=== PATIENT | male | born 1945 ===

== ENCOUNTER 2016-06-18 22:53 | Inpatient (IN) | payer MEDICARE, OTHER ==
[2016-06-18 22:57] VITALS: BMI 29.2
[2016-06-18] MEDS ORDERED: Albuterol-Ipratrop 3 mg / 0.5 (3 ml) UD IH STA (23:04)
--- NOTE | 2016-06-18 23:05 | ED PDOC ---
Arrival/HPI - General Chief Complaint: Shortness Of Breath Time Seen by Provider: 06/18/16 22:55 Historian: Patient - History of Present Illness Narrative History of Present Illness (Text): 06/18/16 23:03 Jimbo Krause is a 70 year old male, whose past medical history includes hypertension, diabetes, asthma, hyperlipidemia, and hypothyroidism, who presents to the ED complaining of shortness of breath for the past couple of days. Patient also reports associated cough. Patient notes he has been unable to take his medication because he recently ran out of medication. Patient denies any fever, chills, chest pain, nausea, vomiting, diarrhea, urinary symptoms, back pain, neck pain, headache, dizziness, or any other complaints. Time/Duration: Other (2 days) Symptom Onset: Gradual Symptom Course: Unchanged Activities at Onset: Rest, Light Context: Home Past Medical History - Provider Review Nursing Documentation Reviewed: Yes - Infectious Disease Hx of Infectious Diseases: None - Tetanus Immunization Tetanus Immunization: Unknown - Cardiac Hx Cardiac Disorders: Yes Hx Heart Murmur: Yes Hx Hypertension: Yes - Pulmonary Hx Asthma: Yes - Neurological Hx Neurological Disorder: No - HEENT Hx HEENT Disorder: Yes (wears glasses) - Renal Hx Renal Disorder: No - Endocrine/Metabolic Hx Diabetes Mellitus Type 2: Yes Hx Hypothyroidism: Yes - Hematological/Oncological Hx Blood Disorders: No - Integumentary Hx Dermatological Disorder: No - Musculoskeletal/Rheumatological Hx Musculoskeletal Disorders: No Hx Falls: No - Gastrointestinal Hx Gastrointestinal Disorders: No - Genitourinary/Gynecological Hx Genitourinary Disorders: No - Psychiatric Hx Anxiety: Yes Hx Depression: Yes Hx Substance Use: No - Surgical History Hx Musculoskeletal Surgery: Yes (Right knee and left shoulder) Other/Comment: Leg - Anesthesia Hx Anesthesia: Yes Hx Anesthesia Reactions: No Hx Malignant Hyperthermia: No Family/Social History - Physician Review Nursing Documentation Reviewed: Yes Family/Social History: No Known Family HX Smoking Status: Former Smoker Hx Alcohol Use: No Hx Substance Use: No Allergies/Home Meds Allergies/Adverse Reactions: Allergies No Known Allergies Allergy (Verified 03/26/16 10:13) Home Medications: Home Meds Medication Instructions Recorded Confirmed Amlodipine Besylate [Norvasc] 10 mg PO DAILY 08/21/15 06/19/16 Aspirin [Ecotrin] 81 mg PO DAILY 08/21/15 06/19/16 Atorvastatin [Lipitor] 10 mg PO DAILY 08/21/15 06/19/16 Escitalopram [Lexapro] 10 mg pe PO DAILY 08/21/15 06/19/16 Levothyroxine Sodium [Levoxyl] 25 mcg PO DAILY 08/21/15 06/19/16 Lisinopril [Zestril] 10 mg PO DAILY 08/21/15 06/19/16 MetFORMIN [glucoPHAGE] 1,000 mg PO BID 08/21/15 06/19/16 Metoprolol Succinate [Toprol XL] 50 mg PO DAILY 08/21/15 06/19/16 GlipiZIDE SR [Glucotrol XL] 10 mg PO BID 03/26/16 06/19/16 Montelukast Sodium [Singulair] 10 mg PO DAILY 03/26/16 06/19/16 ALPRAZolam [Xanax] 0.25 mg PO HS 06/19/16 06/19/16 Review of Systems - Physician Review All systems were reviewed & negative as marked: Yes - Review of Systems Constitutional: Normal. absent: Fevers Eyes: Normal ENT: Normal Respiratory: SOB, Cough Cardiovascular: Normal. absent: Chest Pain Gastrointestinal: Normal. absent: Abdominal Pain, Diarrhea, Nausea, Vomiting Genitourinary Male: Normal. absent: Dysuria, Frequency, Hematuria, Urinary Output Changes Musculoskeletal: Normal. absent: Back Pain, Neck Pain Skin: Normal. absent: Rash Neurological: Normal. absent: Headache, Dizziness Endocrine: Normal Hemo/Lymphatic: Normal Psychiatric: Normal Physical Exam Vital Signs Reviewed: Yes Vital Signs Temp Pulse Resp BP Pulse Ox 06/19/16 03:18 104 H 20 129/75 100 06/19/16 01:05 90 18 120/55 L 98 06/18/16 23:37 98.2 F 06/18/16 23:15 21 100 06/18/16 22:58 86 18 141/86 100 Temperature: Afebrile Blood Pressure: Normal Pulse: Regular Respiratory Rate: Normal Appearance: Positive for: Well-Appearing, Non-Toxic, Comfortable Pain Distress: None Mental Status: Positive for: Alert and Oriented X 3 - Systems Exam Head: Present: Atraumatic, Normocephalic Pupils: Present: PERRL Extroacular Muscles: Present: EOMI Conjunctiva: Present: Normal Mouth: Present: Moist Mucous Membranes Neck: Present: Normal Range of Motion Respiratory/Chest: Present: Wheezes (Wheezing bilaterally). No: Respiratory Distress, Accessory Muscle Use Cardiovascular: Present: Regular Rate and Rhythm, Normal S1, S2. No: Murmurs Abdomen: Present: Normal Bowel Sounds. No: Tenderness, Distention, Peritoneal Signs Upper Extremity: Present: Normal Inspection. No: Cyanosis, Edema Lower Extremity: Present: Normal Inspection. No: Edema Neurological: Present: GCS=15, CN II-XII Intact, Speech Normal Skin: Present: Warm, Dry, Normal Color. No: Rashes Psychiatric: Present: Alert, Oriented x 3, Normal Insight, Normal Concentration Medical Decision Making ED Course and Treatment: 06/18/16 23:03 Impression: 70 year old male complaining of shortness of breath and cough. Differential Diagnosis include but are not limited to: asthma vs. COPD exacerbation vs. pneumonia vs. ACS vs. CHF Plan: -- EKG -- Chest X-ray -- Labs, cardiac enzymes, BNP -- Duoneb -- Solu-medrol -- Reassess and disposition Prior Visits: Notes and results from previous visits were reviewed. On 03/26/2016, pt was seen in the ED for sharp LLQ pain. Pt was d/c home. Progress Notes: Reviewed EKG, NSR at [address]-segment elevations or depressions, no T- wave inversions, normal intervals. 06/19/16 01:53 Reviewed labs, WBC:13.2. Blood cultures, Rocephin, and Zithromax ordered. Reviewed radiology, Chest X-ray shows no active disease. 06/19/16 02:[address] Sarmiento, covering for Dr. Hall, who requests pt go to hospitalist service. microarray operations vice president paged. 06/19/16 02:41 Case discussed with medical microbiologist regional facilities specialist, who is aware and agrees with plan. House doctor paged. 06/19/16 02:[address] Burr, who is aware and agrees with plan. Pt will be admitted to Telemetry for COPD exacerbation under the hospitalist's service. Pt is no acute distress. Discussed results and hospital admission plan with pt, who is aware and verbalizes understanding. - Lab Interpretations Lab Results: 06/18/16 23:15 06/18/16 23:15 Lab Results 06/18/16 23:15: WBC 13.2 H D, RBC 4.64, Hgb 14.7, Hct 41.4 L, MCV 89.2, MCH 31.7 , MCHC 35.5, RDW 12.9, Plt Count 177, MPV 11.9 H, Sodium 133, Potassium 3.8, Chloride 93 L, Carbon Dioxide 29, Anion Gap 15, BUN 16, Creatinine 0.9, Est GFR ( Amer) > 60, Est GFR (Non-Af Amer) > 60, Random Glucose 221 H, Calcium 9.0, Total Bilirubin 1.2, AST 23, ALT 18, Alkaline Phosphatase 67, Lactate Dehydrogenase 408, Total Creatine Kinase 204, Troponin I < 0.01, NT-Pro-B Natriuret Pep 141, Total Protein 7.1, Albumin 4.0, Globulin 3.0, Albumin/ Globulin Ratio 1.3 I have reviewed the lab results: Yes - RAD Interpretation Narrative RAD Interpretations (Text): Chest X-ray shows no active disease. Radiology Orders: 06/18/16 23:04 CHEST PORTABLE [RAD] Stat Accounts Receivable Bookkeeper: ED Physician - EKG Interpretation Interpreted by ED Physician: Yes Type: 12 lead EKG - Medication Orders Current Medication Orders: Albuterol/Ipratropium (Duoneb 3 Mg/0.5 Mg (3 Ml) Ud) 3 ml IH Q2H PRN PRN Reason: Shortness of Breath Albuterol/Ipratropium (Duoneb 3 Mg/0.5 Mg (3 Ml) Ud) 3 ml IH [id number] KRISTEL Amlodipine Besylate (Norvasc) 10 mg PO DAILY KRISTEL Aspirin (Ecotrin) 81 mg PO DAILY KRISTEL Atorvastatin Calcium (Lipitor) 10 mg PO DAILY KRISTEL Escitalopram Oxalate (Lexapro) 10 mg PO DAILY KRISTEL Azithromycin (Zithromax 500mg In Ns) 250 mls @ 167 mls/hr IVPB DAILY KRISTEL PRN Reason: Protocol Ceftriaxone Sodium (Rocephin 1 Gram Ivpb) 100 mls @ 100 mls/hr IVPB DAILY KRISTEL PRN Reason: Protocol Insulin Detemir (Levemir) 8 unit SC BID KRSITEL Insulin Human Lispro (Humalog Med) 0 units SC ACHS KRISTEL PRN Reason: Protocol Levothyroxine Sodium (Synthroid) 25 mcg PO ACB KRISTEL Lisinopril (Zestril) 10 mg PO DAILY KRISTEL Methylprednisolone (Solu-Medrol) 40 mg IVP Q12 KRISTEL Metoprolol Succinate (Toprol Xl) 50 mg PO DAILY KRISTEL Montelukast Sodium (Singulair) 10 mg PO DAILY KRISTEL Discontinued Medications Albuterol/Ipratropium (Duoneb 3 Mg/0.5 Mg (3 Ml) Ud) 3 ml IH ONCE STA Stop: 06/18/16 23:05 Last Admin: 06/18/16 23:29 Dose: 3 ML Albuterol/Ipratropium (Duoneb 3 Mg/0.5 Mg (3 Ml) Ud) 3 ml IH ONCE STA Stop: 06/19/16 02:36 Last Admin: 06/19/16 02:49 Dose: 3 ML Ceftriaxone Sodium (Rocephin 1 Gram Ivpb) 100 mls @ 200 mls/hr IV ONCE STA PRN Reason: Protocol Stop: 06/19/16 03:07 Last Admin: 06/19/16 03:26 Dose: 200 MLS/HR eMAR Start Stop Document 06/19/16 03:26 MR (Rec: 06/19/16 03:27 [id number] Intravenous Solution Start Date 06/19/16 Start Time 03:26 End Date 06/19/16 End time 03:56 Total Infusion Time 30 Azithromycin (Zithromax 500mg In Ns) 250 mls @ 166.667 mls/hr IV STAT STA PRN Reason: Protocol Stop: 06/19/16 04:07 Last Admin: 06/19/16 04:49 Dose: 166.667 MLS/HR eMAR Start Stop Document 06/19/16 04:49 MS (Rec: 06/19/16 04:49 MS [id number]) Intravenous Solution Start Date 06/19/16 Start Time 04:49 End Date 06/19/16 End time 06:19 Total Infusion Time 90 Methylprednisolone (Solu-Medrol) 125 mg IVP ONCE ONE Stop: 06/18/16 23:11 Last Admin: 06/18/16 23:28 Dose: 125 MG IVP Administration Document 06/18/16 23:28 MR (Rec: 06/18/16 23:28 MR [id number]) Charges for Administration # of IVP Administrations 1 - Scribe Statement The provider has reviewed the documentation as recorded by the Scribe Bonny Catrachita Provider Attestation: All medical record entries made by the Uma were at my direction and personally dictated by me. I have reviewed the chart and agree that the record accurately reflects my personal performance of the history, physical exam, medical decision making, and the department course for this patient. I have also personally directed, reviewed, and agree with the discharge instructions and disposition. Disposition/Present on Arrival - Present on Arrival Any Indicators Present on Arrival: No History of DVT/PE: No History of Uncontrolled Diabetes: No Urinary Catheter: No History of Decub. Ulcer: No History Surgical Site Infection Following: None - Disposition Have Diagnosis and Disposition been Completed?: Yes Diagnosis: Obstructive chronic bronchitis with exacerbation Disposition: HOSPITALIZED Disposition Time: 02:40 Patient Plan: Admission Condition: STABLE
[2016-06-18 23:29] LABS: HEMATOCRIT 41.4 % (42.0-52.0); MEAN CELL VOLUME 89.2 fL (80.0-105.0); MEAN CORPUSCULAR HEMOGLOBIN 31.7 pg (25.0-35.0); MEAN CORPUSCULAR HGB CONC 35.5 g/dl (31.0-37.0); MEAN PLATELET VOLUME 11.9 fl (7.0-11.0); RED CELL DISTRIBUTION WIDTH 12.9 % (11.5-14.5); WHITE BLOOD COUNT 13.2 10^3/ul (4.5-11.0)
[2016-06-18 23:44] LABS: ALB/GLOB RATIO 1.3 (1.1-1.8); ALKALINE PHOSPHATASE 67 U/L (38-133); ALT/SGPT 18 U/L (7-56); AST/SGOT 23 U/L (15-59); BILIRUBIN,TOTAL 1.2 mg/dL (0.2-1.3); BLOOD UREA NITROGEN 16 mg/dL (7-21); CARBON DIOXIDE 29 mmol/L (21-33); CHLORIDE 93 mmol/L (98-107); GFR AFRICAN-AMERICAN > 60; GLUCOSE,RANDOM 221 mg/dL (70-110); POTASSIUM 3.8 mmol/L (3.6-5.0); SODIUM 133 mmol/L (132-148); TOTAL PROTEIN 7.1 g/dL (5.8-8.3)
[2016-06-19 00:24] LABS: TROPONIN I < 0.01 ng/mL
[2016-06-19] MEDS ORDERED: Albuterol-Ipratrop 3 mg / 0.5 (3 ml) UD IH STA (02:35)
[2016-06-19] MEDS ORDERED: cefTRIAXone 1 gm 100 ML IV STA (02:38)
[2016-06-19] MEDS ORDERED: Azithromycin 500MG/NS 250ml 250 ML IV STA (02:38)
--- NOTE | 2016-06-19 03:37 | CP.PCM.HP ---
<Lars Liriano - Last Filed: 06/19/16 03:23> History of Present Illness - History of Present Illness History of Present Illness: Lars Liriano D.O. PGY-1, Internal Medicine Resident, Night Float Admission Note CC: Shortness of breath and coughing for 4 days 70 year old male with a PMH of Asthma, COPD, HTN, hypothyroidism, anxiety, and DM2, who presented to [facility] on [place]/16 with complaints of SOB and coughing since 06/15. Patient states that he was in [place] visiting his nephew with another one of his nephews when he started noticing that he was getting short of breath more frequently and coughing "a lot." Patient knows his asthma, which he's had since he was very young, and COPD very well and states that he started taking prednisone 40mg po QD starting the night of 06/15. Patient states that his symptoms did not get that much better and he continued to have "coughing fits." Patient came back 06/18/16 with his nephew driving and when they arrived he realized that he was so bad that he needed to come in. Patient states that this is similar to previous episodes he's had in the past. Denies every having to be intubated before. PMH: as above PSH: right shoulder and left knee surgeries FSH: DM and HTN SH: smoked 2ppd for ~ 27 years, quit about 20+ years ago, denies drinking or illicit drug use Meds: reviewed Allergies: denies Present on Admission - Present on Admission Any Indicators Present on Admission: No Review of Systems - Constitutional Constitutional: absent: Anorexia, Chills - EENT Eyes: absent: Blind Spots, Blurred Vision, Change in Vision Ears: absent: Decreased Hearing, Ear Discharge, Ear Pain Nose/Mouth/Throat: absent: Epistaxis, Nasal Congestion, Nose Pain - Cardiovascular Cardiovascular: Palpitations. absent: Chest Pain, Diaphoresis, Syncope - Respiratory Respiratory: Cough, Dyspnea, Wheezing. absent: Hemoptysis - Gastrointestinal Gastrointestinal: absent: Abdominal Pain, Nausea, Vomiting - Genitourinary Genitourinary: Change in Urinary Stream, Difficulty Urinating. absent: Dysuria - Musculoskeletal Musculoskeletal: absent: Abnormal Gait, Arthralgias - Neurological Neurological: absent: Abnormal Gait, Abnormal Hearing, Dizziness, Weakness Past Patient History - Infectious Disease Hx of Infectious Diseases: None - Tetanus Immunizations Tetanus Immunization: Unknown - Past Social History Smoking Status: Former Smoker - CARDIAC Hx Cardiac Disorders: Yes Hx Heart Murmur: Yes Hx Hypertension: Yes - PULMONARY Hx Asthma: Yes - NEUROLOGICAL Hx Neurological Disorder: No - HEENT Hx HEENT Problems: Yes (wears glasses) - RENAL Hx Chronic Kidney Disease: No - ENDOCRINE/METABOLIC Hx Diabetes Mellitus Type 2: Yes Hx Hypothyroidism: Yes - HEMATOLOGICAL/ONCOLOGICAL Hx Blood Disorders: No - INTEGUMENTARY Hx Dermatological Problems: No - MUSCULOSKELETAL/RHEUMATOLOGICAL Hx Musculoskeletal Disorders: No Hx Falls: No - GASTROINTESTINAL Hx Gastrointestinal Disorders: No - GENITOURINARY/GYNECOLOGICAL Hx Genitourinary Disorders: No - PSYCHIATRIC Hx Anxiety: Yes Hx Depression: Yes Hx Substance Use: No - SURGICAL HISTORY Hx Musculoskeletal Surgery: Yes (Right knee and left shoulder) Other/Comment: Leg - ANESTHESIA Hx Anesthesia: Yes Hx Anesthesia Reactions: No Hx Malignant Hyperthermia: No Meds Allergies/Adverse Reactions: Allergies Allergy/AdvReac Type Severity Reaction Status Date / Time No Known Allergies Allergy Verified 03/26/16 10:13 Physical Exam - Constitutional Additional comments: well developed, well nourished, pleasant elderly Iranian male - Head Exam Head Exam: ATRAUMATIC, NORMOCEPHALIC - Eye Exam Eye Exam: EOMI, PERRL. absent: Conjunctival injection, Scleral icterus - ENT Exam ENT Exam: Mucous Membranes Moist, Normal Oropharynx - Neck Exam Neck exam: Negative for: Lymphadenopathy, Tenderness - Respiratory Exam Respiratory Exam: Rhonchi (diffusely), Wheezes (diffusely). absent: Rales - Cardiovascular Exam Cardiovascular Exam: RRR, +S1, +S2. absent: Gallop, Rubs, Systolic Murmur - GI/Abdominal Exam GI & Abdominal Exam: Normal Bowel Sounds, Soft. absent: Distended, Tenderness - Extremities Exam Extremities exam: Positive for: normal capillary refill, pedal pulses present. Negative for: calf tenderness, pedal edema, tenderness - Back Exam Back exam: absent: muscle spasm, paraspinal tenderness, vertebral tenderness - Neurological Exam Neurological exam: Alert, CN II-XII Intact, Oriented x3 - Skin Skin Exam: Intact, Warm Results - Vital Signs Recent Vital Signs: Last Vital Signs Temp 98.2 F 06/18/16 23:37 Pulse 104 H 06/19/16 03:18 Resp 20 06/19/16 03:18 BP 129/75 06/19/16 03:18 Pulse Ox 100 06/19/16 03:18 - Labs Result Diagrams: 06/18/16 23:15 06/18/16 23:15 Assessment & Plan - Assessment and Plan (Free Text) Assessment: 70 year old male with a PMH of Asthma, COPD, HTN, hypothyroidism, anxiety, and DM2, who presented to [facility] on 06/19/16 with complaints of SOB and coughing since 06/15. Plan: 1. Shortness of breath and cough Admitted to telemetry Likely COPD exacerbation vs pneumonia vs bronchitis, does have both wheezing and rhonchi, vs cardiac etiology Leukocytosis likely 2/2 steroid use before admission vs infectious process Procalcitonin ordered Will trend troponins CXR no official read, reviewed, unable to rule out pneumonia, particularly BL lower lobes, increased pulmonary markings Started duonebs q4h blanca and q2h prn Started solumedrol 40mg po q12h Started ceftriaxone and azithromycin Repeat CBC and CMP tomorrow AM Will continue home montelukast 2. DM2 Will hold PO regimen and place on insulin while in patient Started levemir 8u SC BID Started humalog MED insulin scale Fingersticks ACHS Will get an A1C 3. HTN Continue home regimen and monitor closely in telemetry 4. Anxiety Continue home escitalopram 5. Hematuria and hesitancy Patient states at times has had hematuria and some hesitancy Will order UA and follow up, minimally symptomatic at this time 6. Hypothyrodism Continue home levothyroxine Patient was seen and examined and will be discussed in detial with attending physician. - Date & Time Date: 06/19/16 Time: 03:20 <Charleen Burr - Last Filed: 06/19/16 06:09> Results - Vital Signs Recent Vital Signs: Last Vital Signs Temp 98.2 F 06/18/16 23:37 Pulse 104 H 06/19/16 03:18 Resp 20 06/19/16 03:18 BP 129/75 06/19/16 03:18 Pulse Ox 100 06/19/16 03:18 - Labs Result Diagrams: 06/18/16 23:15 06/18/16 23:15 Attending/Attestation - Attestation I have personally seen and examined this patient.: Yes I have fully participated in the care of the patient.: Yes I have reviewed all pertinent clinical information: Yes Notes (Text): 06/19/16 04:29 Patient was seen when he was in the ER in bed # 8. Agree with history , physical examination, assessment and plan. Following should be included:FH:Father of throat cancer.2 sisters had breast cancer. 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 but .Has 7 children.Lives in [place] in an apartment. PMD:?[place]. ROS:Has eyeglasses for reading, has decreased hearing in both ears, used to have sinus problems, has history of asthma, GERD,BPH,anxiety, depression. SURGICAL HISTORY:Right knee arthroscopy, Left shoulder arthroscopic surgery, Left inguinal herniorrahphy, endo/ colonoscopy 2 years ago at [facility] that were negative, cardiac catheterization one year ago that was negative.
[2016-06-19] MEDS ORDERED: Albuterol-Ipratrop 3 mg / 0.5 (3 ml) UD IH PRN (03:38)
[2016-06-19 06:30] LABS: URINE BILIRUBIN NEGATIVE (NEGATIVE); URINE BLOOD NEGATIVE (NEGATIVE); URINE GLUCOSE (UA) >=1000 mg/dL (NEGATIVE); URINE KETONE TRACE mg/dL (NEGATIVE); URINE LEUKOCYTE ESTERASE NEGATIVE Leu/uL (NEGATIVE); URINE PROTEIN NEGATIVE mg/dL (<30 mg/dL)
[2016-06-19 06:36] LABS: URINE APPEARANCE CLEAR (CLEAR); URINE COLOR YELLOW (YELLOW)
[2016-06-19] MEDS: Albuterol-Ipratrop 3 mg / 0.5 (3 ml) UD IH SCH ×4 (07:40→19:55)
--- NOTE | 2016-06-19 08:31 | RAD ---
HISTORY: sob COMPARISON: 08/21/2015 FINDINGS: LUNGS: No active pulmonary disease. PLEURA: No significant pleural effusion identified, no pneumothorax apparent. CARDIOVASCULAR: Normal. OSSEOUS STRUCTURES: No significant abnormalities. VISUALIZED UPPER ABDOMEN: Normal. OTHER FINDINGS: None. IMPRESSION: No active disease.
[2016-06-19] MEDS: Insulin Lispro (humaLOG) MEDIUM Coverage SC SCH ×4 (08:49→21:59)
[2016-06-19] MEDS: MethylPREDNISolone 40 mg Vial IVP SCH ×2 (09:31→21:19)
[2016-06-19] MEDS: Insulin Detemir 100 units/ml Vial (Levemir) SC SCH ×2 (09:32→17:45)
[2016-06-19] MEDS: Levothyroxine 25 MCG TAB PO SCH (09:32)
[2016-06-19] MEDS: Metoprolol Succinate 50 mg XL Tab PO SCH (10:00)
[2016-06-19] MEDS ORDERED: GlipiZIDE 10 mg SR Tab PO SCH (10:00)
[2016-06-19] MEDS ORDERED: guaiFENesin 100 mg/5 ml Syrup UD PO PRN (11:20)
[2016-06-19] MEDS: cefTRIAXone 1 gm 100 ML IVPB SCH (14:12)
--- NOTE | 2016-06-19 15:40 | CARD ---
APPROVED REPORT EKG Measurement Heart [id number] <Conclusion> Normal sinus rhythm Normal ECG
[2016-06-20] MEDS: Albuterol-Ipratrop 3 mg / 0.5 (3 ml) UD IH SCH ×6 (00:28→20:19)
[2016-06-20 06:32] LABS: HEMATOCRIT 40.1 % (42.0-52.0); MEAN CELL VOLUME 89.3 fL (80.0-105.0); MEAN CORPUSCULAR HEMOGLOBIN 31.2 pg (25.0-35.0); MEAN CORPUSCULAR HGB CONC 34.9 g/dl (31.0-37.0); MEAN PLATELET VOLUME 12.4 fl (7.0-11.0); PLATELET COUNT 177 10^3/uL (120.0-450.0); RED CELL DISTRIBUTION WIDTH 12.7 % (11.5-14.5); WHITE BLOOD COUNT 16.1 10^3/ul (4.5-11.0)
[2016-06-20 06:35] LABS: ADD MANUAL DIFF? YES
[2016-06-20 06:48] LABS: ALB/GLOB RATIO 1.3 (1.1-1.8); ALKALINE PHOSPHATASE 68 U/L (38-133); ALT/SGPT 20 U/L (7-56); AST/SGOT 25 U/L (15-59); BILIRUBIN,TOTAL 0.8 mg/dL (0.2-1.3); BLOOD UREA NITROGEN 20 mg/dL (7-21); CALCIUM 8.8 mg/dL (8.4-10.5); CARBON DIOXIDE 27 mmol/L (21-33); CHLORIDE 96 mmol/L (98-107); GFR AFRICAN-AMERICAN > 60; POTASSIUM 4.5 mmol/L (3.6-5.0); SODIUM 132 mmol/L (132-148); TOTAL PROTEIN 6.7 g/dL (5.8-8.3)
[2016-06-20 07:11] LABS: GLUCOSE,RANDOM 305 mg/dL (70-110)
[2016-06-20] MEDS: Levothyroxine 25 MCG TAB PO SCH (08:08)
[2016-06-20] MEDS: Insulin Lispro (humaLOG) MEDIUM Coverage SC SCH ×4 (08:08→21:56)
[2016-06-20 09:11] LABS: BAND 5 % (0-2); NEUTROPHIL 88 % (50.0-70.0); PLATELET ESTIMATE NORMAL (NORMAL)
[2016-06-20 09:12] LABS: ANISOCYTOSIS SLIGHT; OVALOCYTES SLIGHT
[2016-06-20] MEDS: Insulin Detemir 100 units/ml Vial (Levemir) SC SCH ×2 (10:08→18:50)
[2016-06-20] MEDS: cefTRIAXone 1 gm 100 ML IVPB SCH (10:09)
[2016-06-20] MEDS: Metoprolol Succinate 50 mg XL Tab PO SCH (10:11)
[2016-06-20] MEDS: MethylPREDNISolone 40 mg Vial IVP SCH ×2 (10:11→21:23)
--- NOTE | 2016-06-20 11:37 | CP.PCM.PN ---
<Catracho Madsen - Last Filed: 06/20/16 17:02> Subjective - Date & Time of Evaluation Date of Evaluation: 06/20/16 Time of Evaluation: 07:00 - Subjective Subjective: Patient seen and examined at bedside. No acute events overnight. Patient reports wheezing is improving but still has it. Patient agreed to start insulin after discharged from hospital. Denies having headache, weakness, fever, chills , chest pain, abdominal pain, nausea, vomiting, diarrhea, or constipation. Objective - Vital Signs/Intake and Output Vital Signs (last 24 hours): Temp Pulse Resp BP Pulse Ox 97.8 F 76 20 114/78 96 06/20/16 05:40 06/20/16 05:40 06/20/16 05:40 06/20/16 05:40 06/20/16 05:40 Intake and Output: 06/20/16 06/20/16 06:59 18:59 Intake Total 780 Output Total 450 Balance 330 - Medications Medications: Current Medications Albuterol/Ipratropium (Duoneb 3 Mg/0.5 Mg (3 Ml) Ud) 3 ml IH Q2H PRN PRN Reason: Shortness of Breath Albuterol/Ipratropium (Duoneb 3 Mg/0.5 Mg (3 Ml) Ud) 3 ml IH [id number] [facility] Last Admin: 06/20/16 07:34 Dose: 3 ml Amlodipine Besylate (Norvasc) 10 mg PO DAILY [facility] Last Admin: 06/20/16 10:09 Dose: 10 mg Aspirin (Ecotrin) 81 mg PO DAILY [facility] Last Admin: 06/20/16 10:08 Dose: 81 mg Atorvastatin Calcium (Lipitor) 10 mg PO DAILY [facility] Last Admin: 06/20/16 10:09 Dose: 10 mg Escitalopram Oxalate (Lexapro) 10 mg PO DAILY [facility] Last Admin: 06/20/16 10:08 Dose: 10 mg Guaifenesin (Robitussin) 100 mg PO Q4H PRN PRN Reason: Cough Last Admin: 06/19/16 21:19 Dose: 100 mg Azithromycin (Zithromax 500mg In Ns) 250 mls @ 167 mls/hr IVPB DAILY [facility] PRN Reason: Protocol Ceftriaxone Sodium (Rocephin 1 Gram Ivpb) 100 mls @ 100 mls/hr IVPB DAILY [facility] PRN Reason: Protocol Last Admin: 06/20/16 10:09 Dose: 100 mls/hr Insulin Detemir (Levemir) 10 unit SC BID [facility] Insulin Human Lispro (Humalog Med) 0 units SC ACHS [facility] PRN Reason: Protocol Last Admin: 06/20/16 08:08 Dose: 5 units Levothyroxine Sodium (Synthroid) 25 mcg PO ACB [facility] Last Admin: 06/20/16 08:08 Dose: 25 mcg Lisinopril (Zestril) 10 mg PO DAILY [facility] Last Admin: 06/20/16 10:12 Dose: 10 mg Methylprednisolone (Solu-Medrol) 30 mg IVP Q12 [facility] Metoprolol Succinate (Toprol Xl) 50 mg PO DAILY [facility] Last Admin: 06/20/16 10:11 Dose: 50 mg Montelukast Sodium (Singulair) 10 mg PO DAILY [facility] Last Admin: 06/20/16 10:11 Dose: 10 mg - Labs Labs: 06/20/16 05:30 06/20/16 05:30 - Constitutional Appears: Non-toxic, No Acute Distress - Head Exam Head Exam: ATRAUMATIC, NORMOCEPHALIC - Eye Exam Eye Exam: EOMI, Normal appearance - ENT Exam ENT Exam: Mucous Membranes Moist - Neck Exam Neck Exam: Normal Inspection - Respiratory Exam Respiratory Exam: Clear to Ausculation Bilateral, Wheezes, NORMAL BREATHING PATTERN. absent: Respiratory Distress - Cardiovascular Exam Cardiovascular Exam: REGULAR RHYTHM, RRR, +S1, +S2. absent: Murmur - GI/Abdominal Exam GI & Abdominal Exam: Soft, Normal Bowel Sounds. absent: Tenderness - Extremities Exam Extremities Exam: Full ROM, Normal Capillary Refill, Normal Inspection. absent : Joint Swelling, Pedal Edema - Back Exam Back Exam: NORMAL INSPECTION - Neurological Exam Neurological Exam: Alert, Awake, Oriented x3 - Psychiatric Exam Psychiatric exam: Normal Affect, Normal Mood - Skin Skin Exam: Dry, Warm Assessment and Plan - Assessment and Plan (Free Text) Assessment: 70 year old male with past medical history of Asthma, COPD, HTN, hypothyroidism , anxiety, and DM2, was admitted for COPD exacerbation COPD Exacerbation Discontinued telemetry Leukocytosis at 161 likely due to IV solumedrol Procalcitonin <0.05 Troponins negative x 3 CXR report showed no active disease Continue duonebs q4h blanca and q2h prn Taper solumedrol to 30mg po q12h Continue ceftriaxone and azithromycin Continue home montelukast DM2 Patient agreed to insulin therapy upon discharge Increased levemir to 10 units SC BID Continue humalog MED insulin scale Fingersticks ACHS A1C 9.4 HTN Continue home Norvasc 10mg, Toprol XL 50mg po, lisinopril 10mg Anxiety Continue home escitalopram Hematuria and hesitancy Patient reports normal urine color this AM UA showed trace ketone, urobilinogen Hypothyrodism Continue home levothyroxine <Jelani Coronado - Last Filed: 06/20/16 17:41> Objective - Vital Signs/Intake and Output Vital Signs (last 24 hours): Temp Pulse Resp BP Pulse Ox 97 F L 77 18 125/79 96 06/20/16 12:00 06/20/16 12:00 06/20/16 12:00 06/20/16 12:00 06/20/16 05:40 Intake and Output: 06/20/16 06/20/16 06:59 18:59 Intake Total 780 Output Total 450 Balance 330 - Medications Medications: Current Medications Albuterol/Ipratropium (Duoneb 3 Mg/0.5 Mg (3 Ml) Ud) 3 ml IH Q2H PRN PRN Reason: Shortness of Breath Albuterol/Ipratropium (Duoneb 3 Mg/0.5 Mg (3 Ml) Ud) 3 ml IH [id number] [facility] Last Admin: 06/20/16 16:19 Dose: Not Given Amlodipine Besylate (Norvasc) 10 mg PO DAILY [facility] Last Admin: 06/20/16 10:09 Dose: 10 mg Aspirin (Ecotrin) 81 mg PO DAILY [facility] Last Admin: 06/20/16 10:08 Dose: 81 mg Atorvastatin Calcium (Lipitor) 10 mg PO DAILY [facility] Last Admin: 06/20/16 10:09 Dose: 10 mg Escitalopram Oxalate (Lexapro) 10 mg PO DAILY [facility] Last Admin: 06/20/16 10:08 Dose: 10 mg Guaifenesin (Robitussin) 100 mg PO Q4H PRN PRN Reason: Cough Last Admin: 06/19/16 21:19 Dose: 100 mg Azithromycin (Zithromax 500mg In Ns) 250 mls @ 167 mls/hr IVPB DAILY [facility] PRN Reason: Protocol Last Admin: 06/20/16 12:15 Dose: 167 mls/hr Ceftriaxone Sodium (Rocephin 1 Gram Ivpb) 100 mls @ 100 mls/hr IVPB DAILY [facility] PRN Reason: Protocol Last Admin: 06/20/16 10:09 Dose: 100 mls/hr Insulin Detemir (Levemir) 10 unit SC BID [facility] Insulin Human Lispro (Humalog Med) 0 units SC ACHS [facility] PRN Reason: Protocol Last Admin: 06/20/16 12:19 Dose: 1 units Levothyroxine Sodium (Synthroid) 25 mcg PO ACB [facility] Last Admin: 06/20/16 08:08 Dose: 25 mcg Lisinopril (Zestril) 10 mg PO DAILY [facility] Last Admin: 06/20/16 10:12 Dose: 10 mg Methylprednisolone (Solu-Medrol) 30 mg IVP Q12 [facility] Metoprolol Succinate (Toprol Xl) 50 mg PO DAILY [facility] Last Admin: 06/20/16 10:11 Dose: 50 mg Montelukast Sodium (Singulair) 10 mg PO DAILY [facility] Last Admin: 06/20/16 10:11 Dose: 10 mg - Labs Labs: 06/20/16 05:30 06/20/16 05:30 Attending/Attestation - Attestation I have personally seen and examined this patient.: Yes I have fully participated in the care of the patient.: Yes I have reviewed all pertinent clinical information, including history, physical exam and plan: Yes Notes (Text): 06/20/16 17:37 70 year old male with past medical history of COPD, hypertension, hypothyroidism and diabetes who presented with COPD exacerbation. He is on duonebs, solumedrol and antibiotics. Wheezing is improving and his steroids will be tapered today. Leukocytosis today likely secondary to steroids. He was started on levemir for uncontrolled diabetes. A1c is 9.4. Diabetic education was ordered and well as nurse communication for self insulin injection teaching. Continue with home medications for hypothyroidism and hypertension. Will d/c telemetry today and transfer to med/surg floor. If symptoms continue to improve possible d/c planning in 24-48 hrs. Jelani Coronado MD Hospitalist.
[2016-06-20] MEDS: Azithromycin 500MG/NS 250ml 250 ML IVPB SCH (12:15)
[2016-06-20 18:23] VITALS: O2SAT 95
[2016-06-21] MEDS: Albuterol-Ipratrop 3 mg / 0.5 (3 ml) UD IH SCH ×2 (00:55→07:11)
[2016-06-21 06:44] LABS: ADD MANUAL DIFF? NO
[2016-06-21 07:03] LABS: BLOOD UREA NITROGEN 23 mg/dL (7-21); CALCIUM 8.5 mg/dL (8.4-10.5); CARBON DIOXIDE 25 mmol/L (21-33); CHLORIDE 96 mmol/L (98-107); GFR AFRICAN-AMERICAN > 60; GLUCOSE,RANDOM 285 mg/dL (70-110); POTASSIUM 4.9 mmol/L (3.6-5.0); SODIUM 130 mmol/L (132-148)
[2016-06-21 07:12] LABS: GRAN # 13.84 (1.4-6.5); GRAN % 89.7 % (50.0-68.0); HEMATOCRIT 39.2 % (42.0-52.0); LYMPH % 6.5 % (22.0-35.0); MEAN CELL VOLUME 88.5 fL (80.0-105.0); MEAN CORPUSCULAR HEMOGLOBIN 31.4 pg (25.0-35.0); MEAN CORPUSCULAR HGB CONC 35.5 g/dl (31.0-37.0); MEAN PLATELET VOLUME 11.6 fl (7.0-11.0); MONO # 0.6 (0.1-0.6); MONO % 3.8 % (1.0-6.0); PLATELET COUNT 224 10^3/uL (120.0-450.0); RED CELL DISTRIBUTION WIDTH 12.8 % (11.5-14.5); WHITE BLOOD COUNT 15.4 10^3/ul (4.5-11.0)
[2016-06-21 07:36] VITALS: TEMP 97.8
[2016-06-21] MEDS: Insulin Lispro (humaLOG) MEDIUM Coverage SC SCH ×2 (08:25→11:53)
[2016-06-21] MEDS: Levothyroxine 25 MCG TAB PO SCH (08:26)
[2016-06-21] MEDS: cefTRIAXone 1 gm 100 ML IVPB SCH (10:18)
[2016-06-21] MEDS: MethylPREDNISolone 40 mg Vial IVP SCH (10:19)
[2016-06-21] MEDS: Metoprolol Succinate 50 mg XL Tab PO SCH (10:19)
[2016-06-21 10:28] VITALS: BP 129/80; PULSE 75
[2016-06-21] MEDS: Insulin Detemir 100 units/ml Vial (Levemir) SC SCH (10:44)
[2016-06-21] MEDS: Azithromycin 500MG/NS 250ml 250 ML IVPB SCH (11:44)
--- NOTE | 2016-06-21 12:08 | CP.PCM.DIS ---
<Catracho Madsen - Last Filed: 06/22/16 01:09> Provider - Provider Date of Admission: 06/19/16 02:41 Attending physician: Jelani Coronado MD Primary care physician: [facility] info provided to patient myself Time Spent in preparation of Discharge (in minutes): 40 Hospital Course - Lab Results Lab Results: Micro Results 06/19/16 03:30 Blood Blood Culture - Preliminary NO GROWTH AFTER 48 HOURS 06/19/16 03:00 Blood Blood Culture - Preliminary NO GROWTH AFTER 48 HOURS Most Recent Lab Values WBC 15.4 10^3/ul (4.5-11.0) H 06/21/16 06:00 RBC 4.43 10^6/uL (3.5-6.1) 06/21/16 06:00 Hgb 13.9 gm/dL (14.0-18.0) L 06/21/16 06:00 Hct 39.2 % (42.0-52.0) L 06/21/16 06:00 MCV 88.5 fL (80.0-105.0) 06/21/16 06:00 MCH 31.4 pg (25.0-35.0) 06/21/16 06:00 MCHC 35.5 g/dl (31.0-37.0) 06/21/16 06:00 RDW 12.8 % (11.5-14.5) 06/21/16 06:00 Plt Count 224 10^3/uL (120.0-450.0) 06/21/16 06:00 MPV 11.6 fl (7.0-11.0) H 06/21/16 06:00 Gran % 89.7 % (50.0-68.0) H 06/21/16 06:00 Lymph % (Auto) 6.5 % (22.0-35.0) L 06/21/16 06:00 [place] % (Auto) 3.8 % (1.0-6.0) 06/21/16 06:00 Eos % (Auto) 0.0 % (1.5-5.0) L 06/21/16 06:00 Baso % (Auto) 0.0 % (0.0-3.0) 06/21/16 06:00 Gran # 13.84 (1.4-6.5) H 06/21/16 06:00 Lymph # 1.0 (1.2-3.4) L 06/21/16 06:00 [place] # 0.6 (0.1-0.6) 06/21/16 06:00 Eos # 0.0 (0.0-0.7) 06/21/16 06:00 Baso # 0.00 K/mm3 (0.0-2.0) 06/21/16 06:00 Neutrophils % (Manual) 88 % (50.0-70.0) H 06/20/16 05:30 Band Neutrophils % 5 % (0-2) H 06/20/16 05:30 Lymphocytes % (Manual) 5 % (22.0-35.0) L 06/20/16 05:30 Monocytes % (Manual) 2 % (1.0-6.0) 06/20/16 05:30 Platelet Evaluation Normal (NORMAL) 06/20/16 05:30 Anisocytosis (manual) Slight 06/20/16 05:30 Ovalocytes Slight 06/20/16 05:30 Sodium 130 mmol/L (132-148) L 06/21/16 06:00 Potassium 4.9 mmol/L (3.6-5.0) 06/21/16 06:00 Chloride 96 mmol/L (98-107) L 06/21/16 06:00 Carbon Dioxide 25 mmol/L (21-33) 06/21/16 06:00 Anion Gap 14 (10-20) 06/21/16 06:00 BUN 23 mg/dL (7-21) H 06/21/16 06:00 Creatinine 0.8 mg/dL (0.5-1.4) 06/21/16 06:00 Est GFR ( Amer) > 60 06/21/16 06:00 Est GFR (Non-Af Amer) > 60 06/21/16 06:00 POC Glucose (mg/dL) 338 mg/dL (65-110) H 06/20/16 18:42 Random Glucose 285 mg/dL (70-110) H 06/21/16 06:00 Hemoglobin A1c 9.4 % (4.2-6.5) H 06/19/16 07:00 Calcium 8.5 mg/dL (8.4-10.5) 06/21/16 06:00 Total Bilirubin 0.8 mg/dL (0.2-1.3) 06/20/16 05:30 AST 25 U/L (15-59) 06/20/16 05:30 ALT 20 U/L (7-56) 06/20/16 05:30 Alkaline Phosphatase 68 U/L (38-133) 06/20/16 05:30 Lactate Dehydrogenase 408 U/L (333-699) 06/18/16 23:15 Total Creatine Kinase 204 U/L (35-230) 06/18/16 23:15 Troponin I < 0.01 ng/mL D 06/19/16 15:30 NT-Pro-B Natriuret Pep 141 pg/mL (0-450) 06/18/16 23:15 Total Protein 6.7 g/dL (5.8-8.3) 06/20/16 05:30 Albumin 3.7 g/dL (3.0-4.8) 06/20/16 05:30 Globulin 2.9 gm/dL 06/20/16 05:30 Albumin/Globulin Ratio 1.3 (1.1-1.8) 06/20/16 05:30 Procalcitonin < 0.05 NG/ML (0.19-0.49) L 06/19/16 07:00 Urine Color Yellow (YELLOW) 06/19/16 06:00 Urine Appearance Clear (CLEAR) 06/19/16 06:00 Urine pH 6.0 (4.7-8.0) 06/19/16 06:00 Ur Specific [place] 1.020 (1.005-1.035) 06/19/16 06:00 Urine Protein Negative mg/dL (<30 mg/dL) 06/19/16 06:00 Urine Glucose (UA) >=1000 mg/dL (NEGATIVE) 06/19/16 06:00 Urine Ketones Trace mg/dL (NEGATIVE) H 06/19/16 06:00 Urine Blood Negative (NEGATIVE) 06/19/16 06:00 Urine Nitrate Negative (NEGATIVE) 06/19/16 06:00 Urine Bilirubin Negative (NEGATIVE) 06/19/16 06:00 Urine Urobilinogen 1.0 E.U./dL (<1 E.U./dL) H 06/19/16 06:00 Ur Leukocyte Esterase Negative Jamar/uL (NEGATIVE) 06/19/16 06:00 - Hospital Course Hospital Course: 70 year old male with past medical history of Asthma, COPD, HTN, hypothyroidism , anxiety, and DM2, who presented to [facility] on 06/19/16 with complaints of SOB and coughing since 06/15. Patient states that he was in [place] visiting his nephew with another one of his nephews when he started noticing that he was getting short of breath more frequently and coughing "a lot." Patient knows his asthma, which he's had since he was very young, and COPD very well and states that he started taking prednisone 40mg po QD starting the night of . Patient states that his symptoms did not get that much better and he continued to have "coughing fits." Patient came back 06/18/16 with his nephew driving and when they arrived he realized that he was so bad that he needed to come in. Patient states that this is similar to previous episodes he's had in the past. Denies every having to be intubated before. In the ED, CXR showed no active disease. WBC was found to be 13.2 and elevated glucose of 221. Patient was given duoneb and solumedrol. Upon admission, patient was resumed on his home medications except po diabetic medications and place him on 8 unit levemir BID. Patient's A1c was found to be 9.4. Discussed with patient about option of starting insulin therapy after discharged from hospital. Patient was not in favor of insulin but stated "only if that is necessary". early childhood educator aide was consulted and insulin education provided by nursing. Patient's respiratory symptoms improved throughout his hospital course. WBC elevated due to IV steroid administration. Solu-medrol dose was slowly taper down. Patient will be discharged with medrol dose pack. Patient was advised to stop taking oral diabetic medication to prevent hypoglycemic episodes while on insulin therapy. The discharge plan and follow ups were extensively discussed with the patient who verbalized with complete understanding. At this time, after discussion of all issues, the patient was deemed medically fit for discharge. - Date & Time of H&P Date of H&P: 06/19/16 Time of H&P: 03:23 Discharge Exam - Head Exam Head Exam: ATRAUMATIC, NORMOCEPHALIC - Eye Exam Eye Exam: Normal appearance Pupil Exam: PERRL - ENT Exam ENT Exam: Mucous Membranes Moist - Neck Exam Neck exam: Normal Inspection - Respiratory Exam Respiratory Exam: Clear to PA & Lateral, NORMAL BREATHING PATTERN, UNREMARKABLE. absent: Rhonchi, Wheezes, Respiratory Distress - Cardiovascular Exam Cardiovascular Exam: REGULAR RHYTHM, RRR, +S1, +S2 - GI/Abdominal Exam GI & Abdominal Exam: Normal Bowel Sounds, Soft. absent: Rigid - Extremities Exam Extremities exam: normal inspection, pedal pulses present - Back Exam Back exam: NORMAL INSPECTION. absent: CVA tenderness (L), CVA tenderness (R) - Neurological Exam Neurological exam: Alert, Oriented x3 - Psychiatric Exam Psychiatric exam: Normal Affect, Normal Mood - Skin Skin Exam: Dry, Normal Color, Warm Discharge Plan - Discharge Medications Prescriptions: Insulin Detemir [Levemir] 10 unit SC BID #1 vial Methylprednisolone [Medrol Dose Pack (21 tabs)] 4 mg PO DAILY #21 mg Albuterol HFA [Ventolin HFA 90 mcg/actuation (8 g)] 1 puff IH Q6 PRN #1 puff PRN Reason: Shortness Of Breath - Follow Up Plan Condition: STABLE Disposition: HOME/ ROUTINE Instructions: How to Check Your Blood Sugar (DC), Hypothyroidism (DC), Diabetes Mellitus Type 2 in Adults (DC), COPD (Chronic Obstructive Pulmonary Disease) (DC), Meal Planning with Diabetes Exchanges (DC), Chronic Hypertension (DC) Additional Instructions: You have been discharged from [facility] If you have any further episodes of copd ,please go to the nearest emergency room. -Patient instructed to follow up at [facility] clinic within 1 week of hospital discharge -Patient will take medication and insulin as prescribed -Patient will check blood sugar himself as instructed -Go to the nearest ED if symptoms return or worsen <Jelani Coronado - Last Filed: 06/22/16 06:49> Provider - Provider Date of Admission: 06/19/16 02:41 Attending physician: Jelani Coronado MD Hospital Course - Lab Results Lab Results: Micro Results 06/19/16 03:30 Blood Blood Culture - Preliminary NO GROWTH AFTER 3 DAYS 06/19/16 03:00 Blood Blood Culture - Preliminary NO GROWTH AFTER 3 DAYS Most Recent Lab Values WBC 15.4 10^3/ul (4.5-11.0) H 06/21/16 06:00 RBC 4.43 10^6/uL (3.5-6.1) 06/21/16 06:00 Hgb 13.9 gm/dL (14.0-18.0) L 06/21/16 06:00 Hct 39.2 % (42.0-52.0) L 06/21/16 06:00 MCV 88.5 fL (80.0-105.0) 06/21/16 06:00 MCH 31.4 pg (25.0-35.0) 06/21/16 06:00 MCHC 35.5 g/dl (31.0-37.0) 06/21/16 06:00 RDW 12.8 % (11.5-14.5) 06/21/16 06:00 Plt Count 224 10^3/uL (120.0-450.0) 06/21/16 06:00 MPV 11.6 fl (7.0-11.0) H 06/21/16 06:00 Gran % 89.7 % (50.0-68.0) H 06/21/16 06:00 Lymph % (Auto) 6.5 % (22.0-35.0) L 06/21/16 06:00 [place] % (Auto) 3.8 % (1.0-6.0) 06/21/16 06:00 Eos % (Auto) 0.0 % (1.5-5.0) L 06/21/16 06:00 Baso % (Auto) 0.0 % (0.0-3.0) 06/21/16 06:00 Gran # 13.84 (1.4-6.5) H 06/21/16 06:00 Lymph # 1.0 (1.2-3.4) L 06/21/16 06:00 [place] # 0.6 (0.1-0.6) 06/21/16 06:00 Eos # 0.0 (0.0-0.7) 06/21/16 06:00 Baso # 0.00 K/mm3 (0.0-2.0) 06/21/16 06:00 Neutrophils % (Manual) 88 % (50.0-70.0) H 06/20/16 05:30 Band Neutrophils % 5 % (0-2) H 06/20/16 05:30 Lymphocytes % (Manual) 5 % (22.0-35.0) L 06/20/16 05:30 Monocytes % (Manual) 2 % (1.0-6.0) 06/20/16 05:30 Platelet Evaluation Normal (NORMAL) 06/20/16 05:30 Anisocytosis (manual) Slight 06/20/16 05:30 Ovalocytes Slight 06/20/16 05:30 Sodium 130 mmol/L (132-148) L 06/21/16 06:00 Potassium 4.9 mmol/L (3.6-5.0) 06/21/16 06:00 Chloride 96 mmol/L (98-107) L 06/21/16 06:00 Carbon Dioxide 25 mmol/L (21-33) 06/21/16 06:00 Anion Gap 14 (10-20) 06/21/16 06:00 BUN 23 mg/dL (7-21) H 06/21/16 06:00 Creatinine 0.8 mg/dL (0.5-1.4) 06/21/16 06:00 Est GFR ( Amer) > 60 06/21/16 06:00 Est GFR (Non-Af Amer) > 60 06/21/16 06:00 POC Glucose (mg/dL) 338 mg/dL (65-110) H 06/20/16 18:42 Random Glucose 285 mg/dL (70-110) H 06/21/16 06:00 Hemoglobin A1c 9.4 % (4.2-6.5) H 06/19/16 07:00 Calcium 8.5 mg/dL (8.4-10.5) 06/21/16 06:00 Total Bilirubin 0.8 mg/dL (0.2-1.3) 06/20/16 05:30 AST 25 U/L (15-59) 06/20/16 05:30 ALT 20 U/L (7-56) 06/20/16 05:30 Alkaline Phosphatase 68 U/L (38-133) 06/20/16 05:30 Lactate Dehydrogenase 408 U/L (333-699) 06/18/16 23:15 Total Creatine Kinase 204 U/L (35-230) 06/18/16 23:15 Troponin I < 0.01 ng/mL D 06/19/16 15:30 NT-Pro-B Natriuret Pep 141 pg/mL (0-450) 06/18/16 23:15 Total Protein 6.7 g/dL (5.8-8.3) 06/20/16 05:30 Albumin 3.7 g/dL (3.0-4.8) 06/20/16 05:30 Globulin 2.9 gm/dL 06/20/16 05:30 Albumin/Globulin Ratio 1.3 (1.1-1.8) 06/20/16 05:30 Procalcitonin < 0.05 NG/ML (0.19-0.49) L 06/19/16 07:00 Urine Color Yellow (YELLOW) 06/19/16 06:00 Urine Appearance Clear (CLEAR) 06/19/16 06:00 Urine pH 6.0 (4.7-8.0) 06/19/16 06:00 Ur Specific [place] 1.020 (1.005-1.035) 06/19/16 06:00 Urine Protein Negative mg/dL (<30 mg/dL) 06/19/16 06:00 Urine Glucose (UA) >=1000 mg/dL (NEGATIVE) 06/19/16 06:00 Urine Ketones Trace mg/dL (NEGATIVE) H 06/19/16 06:00 Urine Blood Negative (NEGATIVE) 06/19/16 06:00 Urine Nitrate Negative (NEGATIVE) 06/19/16 06:00 Urine Bilirubin Negative (NEGATIVE) 06/19/16 06:00 Urine Urobilinogen 1.0 E.U./dL (<1 E.U./dL) H 06/19/16 06:00 Ur Leukocyte Esterase Negative Jamar/uL (NEGATIVE) 06/19/16 06:00 Attending/Attestation - Attestation I have personally seen and examined this patient.: Yes I have fully participated in the care of the patient.: Yes I have reviewed all pertinent clinical information, including history, physical exam and plan: Yes Notes (Text): 06/21/16 70 year old male with past medical history of COPD, hypertension, hypothyroidism and diabetes who presented with COPD exacerbation. He was started on duonebs, solumedrol and antibiotics with improvement of symptoms. Today he is not wheezing. Leukocytosis is likely secondary to steroids. He was started on levemir for uncontrolled diabetes with A1c of 9.4. He received diabetic education and taught how to self admister insulin. He was advised to monitor fingerstick closely at home and counselled on diet modifications. Continue with home medications for hypothyroidism and hypertension. He is discharged home today to follow up with his pmd or [facility]. Continue with tapering steroids as prescribed. Jelani Coronado MD Hospitalist.
[2016-06-21 12:24] VITALS: RESP 18
== END 2016-06-21 13:54 | disposition home or self-care (01) | DRG 192 ==
LOC: ED 22:53 → ERH 06-19 02:41 → 2RNO 06-19 04:27 → 5RNO 06-20 14:26
PROVIDERS: ADMIT Hospitalist; ATTEND Internal Medicine
DX: J44.1 Chronic obstructive pulmonary disease with (acute) exacerbation (principal); E11.65 Type 2 diabetes mellitus with hyperglycemia; I10 Essential (primary) hypertension; E03.9 Hypothyroidism, unspecified; J45.909 Unspecified asthma, uncomplicated; N40.1 Benign prostatic hyperplasia with lower urinary tract symptoms; R39.11 Hesitancy of micturition; R31.9 Hematuria, unspecified; K21.9 Gastro-esophageal reflux disease without esophagitis; F32.9 Major depressive disorder, single episode, unspecified; F41.9 Anxiety disorder, unspecified; D72.829 Elevated white blood cell count, unspecified; T38.0X5A Adverse effect of glucocorticoids and synthetic analogues, initial encounter; Z79.84 Long term (current) use of oral hypoglycemic drugs; Z79.82 Long term (current) use of aspirin; Z87.891 Personal history of nicotine dependence

== ENCOUNTER 2017-08-15 02:51 | Emergency (ER) | payer MEDICARE ==
[2017-08-15 02:51] VITALS: BMI 29.2
[2017-08-15 03:02] VITALS: TEMP 97.8
[2017-08-15] MEDS ORDERED: Albuterol-Ipratrop 3 mg / 0.5 (3 ml) UD IH STA (03:17)
--- NOTE | 2017-08-15 03:27 | ED PDOC ---
Arrival/HPI - General Chief Complaint: Shortness Of Breath Time Seen by Provider: 08/15/17 02:58 - History of Present Illness Narrative History of Present Illness (Text): 08/15/17 03:19 Patient is a 71 year old male with a past medical history of asthma, COPD, HTN, hypothyroidism, anxiety, NIDDM, gastritis, and unspecified heart valve dysfunction, who presents to the ED complaining of shortness of breath. Patient says 3 days ago he developed cough with thick clear/white phlegm and chest tightness then this morning around 1 am he started to feel short of breath and "not himself". Patient says it feels similar to COPD exacerbations he has had in the past. He says he uses his ventolin inhaler and nebulizer treatments at home about 2-3x per day and has not had to use them more often over the past 3 days. He denies history of intubation. Patient admits to associated wheezing and dizziness. He also admits to abdominal pain and RLE pain which are not new for him as he is being worked up for H. Pylori as an outpatient and also claims to have problems with arthritis. Patient denies fever, chills, headache, palpitations, nausea, vomiting, diarrhea, constipation, and lower extremity swelling. PMH: asthma, COPD, HTN, hypothyroidism, anxiety, NIDDM, gastritis, and unspecified heart valve dysfunction Meds: reviewed Allergies: NKDA SH: former smoker (quit 35 years ago), denies alcohol and elicit drug use ( Argelia Tarango) Past Medical History - Infectious Disease Hx of Infectious Diseases: None - Tetanus Immunization Tetanus Immunization: Unknown - Cardiac Hx Cardiac Disorders: Yes Hx Heart Murmur: Yes Hx Hypertension: Yes - Pulmonary Hx Respiratory Disorders: Yes Hx Asthma: Yes - Neurological Hx Neurological Disorder: No - HEENT Hx HEENT Disorder: Yes (wears glasses) - Renal Hx Renal Disorder: No - Endocrine/Metabolic Hx Endocrine Disorders: Yes Hx Diabetes Mellitus Type 2: Yes Hx Hypothyroidism: Yes - Hematological/Oncological Hx Blood Disorders: No - Integumentary Hx Dermatological Disorder: No - Musculoskeletal/Rheumatological Hx Musculoskeletal Disorders: No Hx Falls: No - Gastrointestinal Hx Gastrointestinal Disorders: No - Genitourinary/Gynecological Hx Genitourinary Disorders: No - Psychiatric Hx Psychophysiologic Disorder: Yes Hx Anxiety: Yes Hx Depression: Yes Hx Substance Use: No - Surgical History Hx Musculoskeletal Surgery: Yes (Right knee and left shoulder) - Anesthesia Hx Anesthesia: Yes Hx Anesthesia Reactions: No Hx Malignant Hyperthermia: No Family/Social History Family/Social History: No Known Family HX, Unknown Family HX Smoking Status: Former Smoker Hx Alcohol Use: No Hx Substance Use: No Allergies/Home Meds Allergies/Adverse Reactions: Allergies No Known Allergies Allergy (Verified 03/26/16 10:13) Home Medications: Home Meds Medication Instructions Recorded Confirmed Amlodipine Besylate [Norvasc] 10 mg PO DAILY 08/21/15 08/15/17 Aspirin [Ecotrin] 81 mg PO DAILY 08/21/15 08/15/17 Atorvastatin [Lipitor] 40 mg PO DAILY 08/21/15 08/15/17 Escitalopram [Lexapro] 5 mg PO TID 08/21/15 08/15/17 Lisinopril [Zestril] 10 mg PO DAILY 08/21/15 08/15/17 Metoprolol Succinate [Toprol XL] 50 mg PO DAILY 08/21/15 08/15/17 Metformin HCl [Fortamet] 1,000 mg PO BID 08/15/17 08/15/17 Naproxen Sodium [Aleve] 220 mg PO Q6 PRN 08/15/17 08/15/17 SITagliptin [Januvia] 100 mg PO DAILY 08/15/17 08/15/17 glyBURIDE [Micronase] 2.5 mg PO BID 08/15/17 08/15/17 predniSONE [Prednisone] 10 mg PO DAILY 08/15/17 08/15/17 traZODone [Desyrel] 100 mg PO HS 08/15/17 08/15/17 Review of Systems - Physician Review All systems were reviewed & negative as marked: Yes - Review of Systems Constitutional: absent: Fatigue, Fevers, Night Sweats Eyes: Normal. absent: Vision Changes ENT: Normal. absent: Hearing Changes Respiratory: SOB, Cough, Sputum, Wheezing Cardiovascular: FAIRCHILD, Other (chest tightness/pressure). absent: Chest Pain, Palpitations, Edema, Calf Pain Gastrointestinal: Abdominal Pain. absent: Constipation, Diarrhea, Nausea, Vomiting Genitourinary Male: absent: Dysuria, Frequency, Hematuria Musculoskeletal: Arthralgias (history of arthritis) Skin: Normal. absent: Rash Neurological: Dizziness. absent: Headache Endocrine: absent: Diaphoresis Physical Exam Temperature: Afebrile Blood Pressure: Normal Pulse: Regular Respiratory Rate: Normal Appearance: Positive for: Well-Appearing, Non-Toxic, Comfortable Pain Distress: Mild Mental Status: Positive for: Alert and Oriented X 3 - Systems Exam Head: Present: Atraumatic, Normocephalic Pupils: Present: PERRL Extroacular Muscles: Present: EOMI Conjunctiva: Present: Normal Mouth: Present: Moist Mucous Membranes Neck: Present: Normal Range of Motion. No: JVD Respiratory/Chest: Present: Wheezes, Other (speaking in full sentences ). No: Respiratory Distress, Accessory Muscle Use, Rales, Rhonchi, Tender to Palpation Cardiovascular: Present: Regular Rate and Rhythm, Murmurs (systolic ejection murmur), Normal S1, S2 Abdomen: Present: Normal Bowel Sounds. No: Tenderness, Distention, Peritoneal Signs Back: Present: Normal Inspection Upper Extremity: Present: Normal Inspection. No: Cyanosis, Edema Lower Extremity: Present: Normal Inspection. No: Edema, CALF TENDERNESS Neurological: Present: GCS=15, Speech Normal Skin: Present: Warm, Dry, Normal Color. No: Rashes Psychiatric: Present: Alert, Oriented x 3, Normal Insight, Normal Concentration Vital Signs Temp Pulse Resp BP Pulse Ox 08/15/17 04:24 64 15 132/79 95 08/15/17 02:59 97.8 F 66 18 145/85 98 Medical Decision Making ED Course and Treatment: 08/15/17 03:32 Plan: -EKG -Cardiac enzymes -CXR -Duoneb -Solu-medrol -Reassess Plan discussed with Dr. Montes De Oca. 08/15/17 03:46 CXR is unremarkable as read by me. 08/15/17 04:12 EKG: normal sinus rhythm at 65 bpm, no ST segment changes Cardiac enzymes within normal limits Patient improved and says he is feeling much better. (Argelia Tarango) Seen and examined with resident. 71 year old M p/w chest tightness. Wheezing on exam. Enzymes negative in symptoms of over 24 hours. EKG normal. (Gray Montes De Oca) - Lab Interpretations Lab Results: 08/15/17 03:20 08/15/17 03:20 Lab Results 08/15/17 03:20: WBC 9.4 D, RBC 4.51, Hgb 13.9 L, Hct 40.2 L, MCV 89.1, MCH 30.8 , MCHC 34.6, RDW 13.3, Plt Count 172, MPV 11.8 H, Gran % 56.3, Lymph % (Auto) 22.9, Becker % (Auto) 6.1 H, Eos % (Auto) 14.2 H, Baso % (Auto) 0.5, Gran # 5.27, Lymph # (Auto) 2.1, Becker # (Auto) 0.6, Eos # (Auto) 1.3 H, Baso # (Auto) 0.05 08/15/17 03:20: Sodium 140, Potassium 4.5, Chloride 102, Carbon Dioxide 27, Anion Gap 15, BUN 14, Creatinine 1.0, Est GFR ( Amer) > 60, Est GFR (Non- Af Amer) > 60, Random Glucose 138 H, Calcium 8.7, Total Bilirubin 0.5, AST 25, ALT 31, Alkaline Phosphatase 48, Lactate Dehydrogenase 341, Total Creatine Kinase 72, Troponin I < 0.01, Total Protein 6.5, Albumin 3.9, Globulin 2.6, Albumin/Globulin Ratio 1.5 - RAD Interpretation Radiology Orders: 08/15/17 03:17 CHEST PORTABLE [RAD] Stat - Medication Orders Current Medication Orders: Discontinued Medications Albuterol/Ipratropium (Duoneb 3 Mg/0.5 Mg (3 Ml) Ud) 3 ml IH STAT STA Stop: 08/15/17 03:18 Last Admin: 08/15/17 03:26 Dose: 3 ml Methylprednisolone (Solu-Medrol) 125 mg IVP STAT STA Stop: 08/15/17 03:18 Last Admin: 08/15/17 03:26 Dose: 125 mg IVP Administration Document 08/15/17 03:26 CNR (Rec: 08/15/17 03:26 CNR [id number]) Charges for Administration # of IVP Administrations 1 - PA / TRAVELER CHANGER / Resident Statement / has reviewed & agrees with the documentation as recorded. / has examined the patient and agrees with the treatment plan. Disposition/Present on Arrival - Present on Arrival Any Indicators Present on Arrival: No History of DVT/PE: No History of Uncontrolled Diabetes: No Urinary Catheter: No History of Decub. Ulcer: No History Surgical Site Infection Following: None - Disposition Have Diagnosis and Disposition been Completed?: Yes Disposition Time: 04:15 - Disposition Diagnosis: COPD exacerbation Disposition: HOME/ ROUTINE Condition: STABLE Discharge Instructions (ExitCare): Exacerbation of COPD Additional Instructions: Please follow up with your primary care provider by the end of the week for further coordination of your care. If you experience new or worsening symptoms, please return to the ED. Forms: [employer] (Danish)
[2017-08-15 03:57] LABS: ALB/GLOB RATIO 1.5 (1.1-1.8); ALBUMIN 3.9 g/dL (3.0-4.8); ALT/SGPT 31 U/L (7-56); AST/SGOT 25 U/L (17-59); BLOOD UREA NITROGEN 14 mg/dL (7-21); CALCIUM 8.7 mg/dL (8.4-10.5); GFR AFRICAN-AMERICAN > 60; GFR NON-AFRICAN AMERICAN > 60
[2017-08-15 04:00] LABS: BASO # 0.05 K/mm3 (0.0-2.0); BASO % 0.5 % (0.0-3.0); EOS # 1.3 (0.0-0.7); EOS % 14.2 % (1.5-5.0); GRAN # 5.27 (1.4-6.5); GRAN % 56.3 % (50.0-68.0); HEMOGLOBIN 13.9 g/dL (14.0-18.0); LYMPH # 2.1 (1.2-3.4); LYMPH % 22.9 % (22.0-35.0); MEAN CELL VOLUME 89.1 fl (80.0-105.0); MEAN CORPUSCULAR HEMOGLOBIN 30.8 pg (25.0-35.0); MEAN CORPUSCULAR HGB CONC 34.6 g/dl (31.0-37.0); MEAN PLATELET VOLUME 11.8 fl (7.0-11.0); MONO # 0.6 (0.1-0.6); MONO % 6.1 % (1.0-6.0); RBC 4.51 10^6/uL (3.5-6.1); RED CELL DISTRIBUTION WIDTH 13.3 % (11.5-14.5); WHITE BLOOD COUNT 9.4 10^3/ul (4.5-11.0)
[2017-08-15 04:07] LABS: TROPONIN I < 0.01 ng/mL
[2017-08-15 04:25] VITALS: BP 132/79; PULSE 64; RESP 15; O2SAT 95
--- NOTE | 2017-08-15 09:01 | RAD ---
HISTORY: Shortness of breath. COMPARISON: 06/18/2016. FINDINGS: LUNGS: No active pulmonary disease. PLEURA: No significant pleural effusion identified, no pneumothorax apparent. CARDIOVASCULAR: No radiographic findings to suggest acute or significant cardiovascular disease. OSSEOUS STRUCTURES: No significant abnormalities. VISUALIZED UPPER ABDOMEN: Normal. OTHER FINDINGS: None. IMPRESSION: No active disease. No significant interval change compared to the prior examination(s).
--- NOTE | 2017-08-16 09:23 | CARD ---
APPROVED REPORT EKG Measurement Heart [id number] [place] [id number] <Conclusion> Normal sinus rhythm Normal ECG
== END 2017-08-15 04:24 | disposition home or self-care (01) ==
LOC: ED 02:51
DX: J44.1 Chronic obstructive pulmonary disease with (acute) exacerbation (principal); I10 Essential (primary) hypertension; E11.9 Type 2 diabetes mellitus without complications; Z87.891 Personal history of nicotine dependence
CPT/HCPCS: 71045; 80053; 82550; 82948; 83615; 84484; 85025; 93005; 96374; 99285; J2930

== ENCOUNTER 2018-02-17 09:43 | Emergency (ER) | payer MEDICARE ==
[2018-02-17 09:46] VITALS: BMI 29.4
--- NOTE | 2018-02-17 10:08 | ED PDOC ---
Arrival/HPI - General Chief Complaint: Respiratory Distress Historian: Patient - History of Present Illness Narrative History of Present Illness (Text): 02/17/18 10:08 72 y/o male, pmh including htn/copd/asthma/hypothyroidism/dm, nkda, c/o coughing/wheezing with sputumn x 3 days with no recent traveling. Pt. stated that he has been coughing with wheezing, usual asthma/copd exacerbation, no fever or chills, no night sweat, no night sweat, no leg swelling, no dizziness, no change in vision, no numbness or tingling, no other medical or psychological complaints. Past Medical History - Provider Review Nursing Documentation Reviewed: Yes - Infectious Disease Hx of Infectious Diseases: None - Tetanus Immunization Tetanus Immunization: Unknown - Cardiac Hx Cardiac Disorders: Yes Hx Heart Murmur: Yes Hx Hypertension: Yes - Pulmonary Hx Respiratory Disorders: Yes Hx Asthma: Yes - Neurological Hx Neurological Disorder: No - HEENT Hx HEENT Disorder: Yes (wears glasses) - Renal Hx Renal Disorder: No - Endocrine/Metabolic Hx Endocrine Disorders: Yes Hx Diabetes Mellitus Type 2: Yes Hx Hypothyroidism: Yes - Hematological/Oncological Hx Blood Disorders: No - Integumentary Hx Dermatological Disorder: No - Musculoskeletal/Rheumatological Hx Musculoskeletal Disorders: No Hx Falls: No - Gastrointestinal Hx Gastrointestinal Disorders: No - Genitourinary/Gynecological Hx Genitourinary Disorders: No - Psychiatric Hx Psychophysiologic Disorder: Yes Hx Anxiety: Yes Hx Depression: Yes Hx Substance Use: No - Surgical History Hx Musculoskeletal Surgery: Yes (Right knee and left shoulder) - Anesthesia Hx Anesthesia: Yes Hx Anesthesia Reactions: No Hx Malignant Hyperthermia: No Family/Social History - Physician Review Nursing Documentation Reviewed: Yes Family/Social History: Unknown Family HX Smoking Status: Former Smoker Hx Alcohol Use: No Hx Substance Use: No Allergies/Home Meds Allergies/Adverse Reactions: Allergies No Known Allergies Allergy (Verified 03/26/16 10:13) Home Medications: Home Meds Medication Instructions Recorded Confirmed Amlodipine Besylate [Norvasc] 10 mg PO DAILY 08/21/15 02/17/18 Aspirin [Ecotrin] 81 mg PO DAILY 08/21/15 02/17/18 Atorvastatin [Lipitor] 40 mg PO DAILY 08/21/15 02/17/18 Escitalopram [Lexapro] 5 mg PO TID 08/21/15 02/17/18 Lisinopril [Zestril] 10 mg PO DAILY 08/21/15 02/17/18 Metoprolol Succinate XL [Toprol XL] 50 mg PO DAILY 08/21/15 02/17/18 Metformin HCl [Fortamet] 1,000 mg PO BID 08/15/17 02/17/18 Naproxen Sodium [Aleve] 220 mg PO Q6 PRN 08/15/17 02/17/18 SITagliptin [Januvia] 100 mg PO DAILY 08/15/17 02/17/18 glyBURIDE [Micronase] 2.5 mg PO BID 08/15/17 02/17/18 predniSONE [Prednisone] 10 mg PO DAILY 08/15/17 02/17/18 traZODone [Desyrel] 100 mg PO HS 08/15/17 02/17/18 Review of Systems - Review of Systems Constitutional: absent: Fatigue, Fevers Respiratory: Cough, Sputum, Wheezing. absent: SOB Cardiovascular: absent: Chest Pain Gastrointestinal: absent: Abdominal Pain, Nausea, Vomiting Genitourinary Male: absent: Dysuria, Frequency Musculoskeletal: absent: Arthralgias, Back Pain Skin: absent: Rash, Pruritis Neurological: absent: Headache, Dizziness Endocrine: absent: Diaphoresis Hemo/Lymphatic: absent: Adenopathy Psychiatric: absent: Anxiety, Depression, Suicidal Ideation Physical Exam Vital Signs Reviewed: Yes Vital Signs Temp Pulse Resp BP Pulse Ox 02/17/18 09:46 97.9 F 76 20 114/70 98 Temperature: Afebrile Blood Pressure: Normal Pulse: Regular Respiratory Rate: Normal Appearance: Positive for: Well-Appearing, Non-Toxic, Comfortable Pain Distress: None Mental Status: Positive for: Alert and Oriented X 3 - Systems Exam Head: Present: Atraumatic, Normocephalic Pupils: Present: PERRL Extroacular Muscles: Present: EOMI Conjunctiva: Present: Normal Mouth: Present: Moist Mucous Membranes Neck: Present: Normal Range of Motion Respiratory/Chest: Present: Wheezes, Decreased Breath Sounds, Rhonchi. No: Respiratory Distress, Accessory Muscle Use, Rales, Retracting, Tachypneic, Tender to Palpation Cardiovascular: Present: Regular Rate and Rhythm, Normal S1, S2. No: Murmurs Abdomen: No: Tenderness, Distention, Peritoneal Signs Back: Present: Normal Inspection Upper Extremity: Present: Normal Inspection. No: Cyanosis, Edema Lower Extremity: Present: Normal Inspection. No: Edema Neurological: Present: GCS=15, CN II-XII Intact, Speech Normal Skin: Present: Warm, Dry, Normal Color. No: Rashes Psychiatric: Present: Alert, Oriented x 3, Normal Insight, Normal Concentration Medical Decision Making ED Course and Treatment: 02/17/18 10:14 -labs -ekg -cxr -IV solumedrol/duoneb -Observe and reassess 02/17/18 11:46 -EKG: NSR @ 64 BPM, no St elevation or depression, no T wave inversion. -CXR Biapical pleural thickening. No focal consolidation. -Labs show no acute findings -Mg within normal limit -Rapid flu is negative -trop after 24 hours is negative -Wheezing and rhonchi resolved, bilateral clear to auscultate, feeling completely relief, request to be discharged home, out of advair diskus 500/5 and request refill, will refill for him, walking around and not feeling any symptoms at all. -Discharge home with zithromax, prednisone, advair diskus, albuterol MDI, continue singulair at home, stay hydrated, follow up with your own pmd/senior administrative support within 2 days, return to the ER for any new or worsening signs or symptoms. - RAD Interpretation Radiology Orders: HISTORY: cough COMPARISON: Chest x-ray performed 08/15/17 TECHNIQUE: Chest PA and lateral FINDINGS: LUNGS: Mild biapical pleural thickening. No focal consolidation. Please note that chest x-ray has limited sensitivity for the detection of pulmonary masses. PLEURA: No significant pleural effusion identified. No definite pneumothorax . CARDIOVASCULAR: Heart size appears within normal limits. No atherosclerotic calcification present. OSSEOUS STRUCTURES: No acute osseous abnormality identified. VISUALIZED UPPER ABDOMEN: Unremarkable. OTHER FINDINGS: None. IMPRESSION: Biapical pleural thickening. No focal consolidation. Mattress Finisher: Radiologist - EKG Interpretation EKG Interpretation (Text): 02/17/18 10:46 EKG: NSR @ 64 BPM, no St elevation or depression, no T wave inversion. Interpreted by ED Physician: Yes Type: 12 lead EKG - PA / PANEL EDGE SEALER / Resident Statement MD/DO has reviewed & agrees with the documentation as recorded. Disposition/Present on Arrival - Present on Arrival Any Indicators Present on Arrival: No History of DVT/PE: No History of Uncontrolled Diabetes: No Urinary Catheter: No History of Decub. Ulcer: No History Surgical Site Infection Following: None - Disposition Have Diagnosis and Disposition been Completed?: Yes Diagnosis: Bronchitis, Asthma Disposition: HOME/ ROUTINE Disposition Time: 11:47 Patient Plan: Discharge Condition: IMPROVED Additional Instructions: -Discharge home with zithromax, prednisone, advair diskus, albuterol MDI, con kathiaue singulair at home, stay hydrated, follow up with your own pmd/senior administrative support within 2 days, return to the ER for any new or worsening signs or symptoms. Prescriptions: Albuterol HFA [Ventolin HFA 90 mcg/actuation (8 g)] 2 puff IH [id number] PRN #1 inhaler PRN Reason: Cough Azithromycin [Zithromax] 250 mg PO DAILY #6 tab Fluticasone/Salmeterol 500/50 [Advair Diskus 500/50] 1 puff IH DAILY #1 inhaler Prednisone 50 mg PO DAILY #5 tab Referrals: Ayan Lopez MD [Staff Provider] - Follow up with primary Forms: [employer] (Swedish), WORK NOTE
[2018-02-17] MEDS: Albuterol-Ipratrop 3 mg / 0.5 (3 ml) UD IH SCH ×3 (10:45→11:24)
[2018-02-17 10:51] VITALS: TEMP 98
[2018-02-17 11:09] LABS: BASO # 0.04 K/mm3 (0.0-2.0); BASO % 0.5 % (0.0-3.0); EOS # 0.9 (0.0-0.7); EOS % 12.4 % (1.5-5.0); GRAN # 4.31 (1.4-6.5); GRAN % 59.2 % (50.0-68.0); HEMOGLOBIN 12.6 g/dL (14.0-18.0); LYMPH # 1.7 (1.2-3.4); LYMPH % 22.7 % (22.0-35.0); MEAN CELL VOLUME 91.7 fl (80.0-105.0); MEAN CORPUSCULAR HEMOGLOBIN 30.9 pg (25.0-35.0); MEAN CORPUSCULAR HGB CONC 33.7 g/dl (31.0-37.0); MEAN PLATELET VOLUME 11.6 fl (7.0-11.0); MONO # 0.4 (0.1-0.6); MONO % 5.2 % (1.0-6.0); RBC 4.08 10^6/uL (3.5-6.1); RED CELL DISTRIBUTION WIDTH 13.3 % (11.5-14.5); WHITE BLOOD COUNT 7.3 10^3/uL (4.5-11.0)
[2018-02-17 11:29] LABS: ALB/GLOB RATIO 1.3 (1.1-1.8); ALBUMIN 3.5 g/dL (3.0-4.8); ALT/SGPT 29 U/L (7-56); AST/SGOT 19 U/L (17-59); BLOOD UREA NITROGEN 14 mg/dL (7-21); CALCIUM 8.6 mg/dL (8.4-10.5); GFR NON-AFRICAN AMERICAN > 60
[2018-02-17 11:39] LABS: TROPONIN I < 0.01 ng/mL
[2018-02-17 11:52] VITALS: BP 109/64; PULSE 65; RESP 17; O2SAT 99
--- NOTE | 2018-02-17 12:28 | RAD ---
HISTORY: cough COMPARISON: Chest x-ray performed 08/15/17 TECHNIQUE: Chest PA and lateral FINDINGS: LUNGS: Mild biapical pleural thickening. No focal consolidation. Please note that chest x-ray has limited sensitivity for the detection of pulmonary masses. PLEURA: No significant pleural effusion identified. No definite pneumothorax . CARDIOVASCULAR: Heart size appears within normal limits. No atherosclerotic calcification present. OSSEOUS STRUCTURES: No acute osseous abnormality identified. VISUALIZED UPPER ABDOMEN: Unremarkable. OTHER FINDINGS: None. IMPRESSION: Biapical pleural thickening. No focal consolidation.
--- NOTE | 2018-02-18 08:11 | CARD ---
APPROVED REPORT Date of service: 02/17/2018 EKG Measurement Heart [id number] [place] [id number] <Conclusion> Normal sinus rhythm LAD No change
== END 2018-02-17 12:10 | disposition home or self-care (01) ==
LOC: ED 09:43
DX: J45.909 Unspecified asthma, uncomplicated (principal); I10 Essential (primary) hypertension; E11.9 Type 2 diabetes mellitus without complications; Z87.891 Personal history of nicotine dependence
CPT/HCPCS: 71046; 80053; 83735; 84484; 85025; 87804; 93005; 96374; 99284; J2930

== ENCOUNTER 2018-03-31 10:35 | Emergency (ER) | payer MEDICARE ==
[2018-03-31 10:36] VITALS: BMI 29.4
[2018-03-31 10:47] VITALS: TEMP 97.8
--- NOTE | 2018-03-31 11:15 | ED PDOC ---
Arrival/HPI - General Historian: Patient - History of Present Illness Narrative History of Present Illness (Text): 03/31/18 11:15 72-year-old male with a history of diabetes hypertension and asthma presents today with a 2 week history of worsening shortness of breath. Patient states he's been having wheezing and dry cough. Patient states she's been taking prednisone and nebulizers at home without improvement of his symptoms. He denies fevers or chills. Denies chest pain. Complaining of rib pain and upper abdominal pain only with cough. Patient denies sick contacts. States he did not get his flu shot this year. Patient states she's noticed some increased lower leg swelling. No other complaints <Jessica Marx - Last Filed: 03/31/18 20:11> <Eriberto Fu - Last Filed: 04/01/18 12:40> - General Chief Complaint: Shortness Of Breath Time Seen by Provider: 03/31/18 10:40 Past Medical History - Provider Review Nursing Documentation Reviewed: Yes - Travel History Have you recently traveled outside [place] w/in the past 3 mons?: No - Infectious Disease Hx of Infectious Diseases: None - Tetanus Immunization Tetanus Immunization: Unknown - Cardiac Hx Cardiac Disorders: Yes Hx Heart Murmur: Yes Hx Hypertension: Yes - Pulmonary Hx Respiratory Disorders: Yes Hx Asthma: Yes - Neurological Hx Neurological Disorder: No - HEENT Hx HEENT Disorder: Yes (wears glasses) - Renal Hx Renal Disorder: No - Endocrine/Metabolic Hx Endocrine Disorders: Yes Hx Diabetes Mellitus Type 2: Yes Hx Hypothyroidism: Yes - Hematological/Oncological Hx Blood Disorders: No - Integumentary Hx Dermatological Disorder: No - Musculoskeletal/Rheumatological Hx Musculoskeletal Disorders: No Hx Falls: No - Gastrointestinal Hx Gastrointestinal Disorders: No - Genitourinary/Gynecological Hx Genitourinary Disorders: No - Psychiatric Hx Psychophysiologic Disorder: Yes Hx Anxiety: Yes Hx Depression: Yes Hx Substance Use: No - Surgical History Hx Musculoskeletal Surgery: Yes (Right knee and left shoulder) - Anesthesia Hx Anesthesia: Yes Hx Anesthesia Reactions: No Hx Malignant Hyperthermia: No <Jessica Marx - Last Filed: 03/31/18 20:11> Family/Social History - Physician Review Nursing Documentation Reviewed: Yes Family/Social History: Unknown Family HX Smoking Status: Former Smoker Hx Alcohol Use: No Hx Substance Use: No <Jessica Marx - Last Filed: 03/31/18 20:11> Allergies/Home Meds <Jessica Marx - Last Filed: 03/31/18 20:11> <Eriberto Fu - Last Filed: 04/01/18 12:40> Allergies/Adverse Reactions: Allergies No Known Allergies Allergy (Verified 03/26/16 10:13) Home Medications: Home Meds Medication Instructions Recorded Confirmed RX: Amlodipine Besylate [Norvasc] 10 mg PO DAILY 08/21/15 02/17/18 RX: Aspirin [Ecotrin] 81 mg PO DAILY 08/21/15 02/17/18 RX: Atorvastatin [Lipitor] 40 mg PO DAILY 08/21/15 02/17/18 RX: Escitalopram [Lexapro] 5 mg PO TID 08/21/15 02/17/18 RX: Lisinopril [Zestril] 10 mg PO DAILY 08/21/15 02/17/18 RX: Metoprolol Succinate XL 50 mg PO DAILY 08/21/15 02/17/18 [Toprol XL] Metformin HCl [Fortamet] 1,000 mg PO BID 08/15/17 02/17/18 Naproxen Sodium [Aleve] 220 mg PO Q6 PRN 08/15/17 02/17/18 RX: traZODone [Desyrel] 100 mg PO HS 08/15/17 02/17/18 SITagliptin [Januvia] 100 mg PO DAILY 08/15/17 02/17/18 glyBURIDE [Micronase] 2.5 mg PO BID 08/15/17 02/17/18 predniSONE [Prednisone] 10 mg PO DAILY 08/15/17 02/17/18 Review of Systems - Review of Systems Constitutional: absent: Fatigue, Fevers Respiratory: SOB, Cough, Wheezing Cardiovascular: absent: Chest Pain, Palpitations Gastrointestinal: absent: Abdominal Pain, Nausea, Vomiting Genitourinary Male: absent: Dysuria Musculoskeletal: absent: Arthralgias, Back Pain, Neck Pain Skin: absent: Rash, Pruritis Neurological: absent: Headache, Dizziness Psychiatric: absent: Anxiety, Depression <Jessica Marx - Last Filed: 03/31/18 20:11> Physical Exam Vital Signs Reviewed: Yes Vital Signs Temp Pulse Resp BP Pulse Ox 03/31/18 10:44 97.8 F 70 20 125/70 98 Temperature: Afebrile Blood Pressure: Normal Pulse: Regular Respiratory Rate: Normal Appearance: Positive for: Well-Appearing, Non-Toxic, Comfortable Pain Distress: None Mental Status: Positive for: Alert and Oriented X 3 - Systems Exam Head: Present: Atraumatic Mouth: Present: Moist Mucous Membranes Neck: Present: Normal Range of Motion Respiratory/Chest: Present: Wheezes, Decreased Breath Sounds. No: Clear to Auscultation, Respiratory Distress, Accessory Muscle Use, Tachypneic Cardiovascular: Present: Regular Rate and Rhythm. No: Tachycardic Abdomen: No: Tenderness, Distention, Rebound, Guarding Upper Extremity: Present: Normal Inspection Lower Extremity: No: Edema Neurological: Present: GCS=15, Speech Normal Skin: Present: Warm, Dry, Normal Color. No: Rashes Psychiatric: Present: Alert, Oriented x 3 <Jessica Marx T - Last Filed: 03/31/18 20:11> Vital Signs Temp Pulse Resp BP Pulse Ox 03/31/18 12:47 77 18 125/72 98 03/31/18 11:17 20 96 03/31/18 10:44 97.8 F 70 20 125/70 98 <Eriberto Fu - Last Filed: 04/01/18 12:40> Medical Decision Making ED Course and Treatment: 03/31/18 11:20 72-year-old male with a history of asthma diabetes and hypertension and complaining of a 2 week history of worsening shortness of breath despite home nebulizers. CBC: wnl CMP glucose; 318 Troponin: wnl BNP: wnl rapid flu: negative EKG shows normal sinus rhythm at 63 bpm normal axis no ST elevations Chest x-ray: FINDINGS: LUNGS: No active pulmonary disease. PLEURA: No significant pleural effusion identified, no pneumothorax apparent. CARDIOVASCULAR: No aortic atherosclerotic calcification present. Mild aortic tortuosity. The heart is top-normal in size no pulmonary vascular congestion. OSSEOUS STRUCTURES: No significant abnormalities. VISUALIZED UPPER ABDOMEN: Normal. OTHER FINDINGS: None. IMPRESSION: No active disease. Patient given Solu-Medrol 125 and 3 duo nebs. NS iv bolus 500cc Patient reassessment: pt feeling better after medications; vitals stable. 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 Advised immediate return if symptoms worsen persist or if new concerning symptoms develop. Patient verbalizes understanding of discharge instructions and need for immediate followup. Patient requesting a refill of his glyburide all aspects of this case were discussed the attending of record. impression: asthma Prednisone daily 4 days Nebulizers 3 times daily as needed for cough Follow the primary care physician within the next 2 days Follow-up with the bag loader machine operator within the next 2 days Return immediately if symptoms worsen persist or if new concerning symptoms develop Reassessment Condition: Re-examined, Improved - RAD Interpretation Radiology Orders: 03/31/18 11:06 CHEST PORTABLE [RAD] Stat - Medication Orders Current Medication Orders: Albuterol/Ipratropium (Duoneb 3 Mg/0.5 Mg (3 Ml) Ud) 3 ml IH Q15M KRISTEL Stop: 03/31/18 11:46 Discontinued Medications Methylprednisolone (Solu-Medrol) 125 mg IVP STAT STA Stop: 03/31/18 11:08 <Jessica Marx - Last Filed: 03/31/18 20:11> - Lab Interpretations Microbiology Results: Microbiology Results 03/31/18 12:20 Blood Blood Culture - Preliminary NO GROWTH AFTER 24 HOURS 03/31/18 11:36 Blood Blood Culture - Preliminary NO GROWTH AFTER 24 HOURS Lab Results: pO2 41 mm/Hg (30-55) 03/31/18 11:36 VBG pH 7.30 (7.32-7.43) L 03/31/18 11:36 VBG pCO2 57.0 (40-60) 03/31/18 11:36 VBG HCO3 28.0 mmol/l (21-28) 03/31/18 11:36 VBG Total CO2 29.7 mmol.L (22-28) H 03/31/18 11:36 VBG O2 Sat (Calc) 76.9 % (40-65) H 03/31/18 11:36 VBG Base Excess 0.4 mmol/L (0.0-2.0) 03/31/18 11:36 VBG Potassium 4.5 mmol/L (3.6-5.2) 03/31/18 11:36 Sodium 134.0 mmol/L (132-148) 03/31/18 11:36 Chloride 99.0 mmol/L (98-107) 03/31/18 11:36 Glucose 338 mg/dl (75-110) H 03/31/18 11:36 Lactate 1.8 mmol/L (0.7-2.1) 03/31/18 11:36 FiO2 21.0 % 03/31/18 11:36 Troponin I < 0.01 ng/mL 03/31/18 11:36 NT-Pro-B Natriuret Pep 61.8 pg/mL (0-450) 03/31/18 11:36 Total Bilirubin 0.5 mg/dL (0.2-1.3) 03/31/18 11:36 AST 20 U/L (17-59) 03/31/18 11:36 ALT 29 U/L (7-56) 03/31/18 11:36 Alkaline Phosphatase 65 U/L (38-126) 03/31/18 11:36 Total Protein 6.7 g/dL (5.8-8.3) 03/31/18 11:36 Albumin 4.1 g/dL (3.0-4.8) 03/31/18 11:36 Globulin 2.6 gm/dL 03/31/18 11:36 Albumin/Globulin Ratio 1.6 (1.1-1.8) 03/31/18 11:36 - RAD Interpretation Radiology Orders: 03/31/18 11:06 CHEST PORTABLE [RAD] Stat - Medication Orders Current Medication Orders: Discontinued Medications Albuterol/Ipratropium (Duoneb 3 Mg/0.5 Mg (3 Ml) Ud) 3 ml IH Q15M KRISTEL Stop: 03/31/18 11:46 Last Admin: 03/31/18 12:04 Dose: 3 ml Sodium Chloride (Sodium Chloride 0.9%) 500 mls @ 999 mls/hr IV .Q31M STA Stop: 03/31/18 12:52 Last Admin: 03/31/18 12:39 Dose: 999 mls/hr eMAR Start Stop Document 03/31/18 12:39 KV (Rec: 03/31/18 12:39 KV [id number]) Intravenous Solution Start Date 03/31/18 Start Time 12:39 Methylprednisolone (Solu-Medrol) 125 mg IVP STAT STA Stop: 03/31/18 11:08 Last Admin: 03/31/18 11:40 Dose: 125 mg IVP Administration Document 03/31/18 11:40 KV (Rec: 03/31/18 11:41 KV [id number]) Charges for Administration # of IVP Administrations 1 <Eriberto Fu - Last Filed: 04/01/18 12:40> - PA / ELECTRONIC LAB TECHNICIAN / Resident Statement MD/DO has reviewed & agrees with the documentation as recorded. <Eriberto Fu - Last Filed: 04/01/18 12:40> Disposition/Present on Arrival - Present on Arrival Any Indicators Present on Arrival: No History of DVT/PE: No History of Uncontrolled Diabetes: No Urinary Catheter: No History of Decub. Ulcer: No History Surgical Site Infection Following: None - Disposition Have Diagnosis and Disposition been Completed?: Yes Disposition Time: 12:25 <Jessica Marx - Last Filed: 03/31/18 20:11> <Eriberto Fu - Last Filed: 04/01/18 12:40> - Disposition Diagnosis: Asthma Disposition: HOME/ ROUTINE Condition: GOOD Additional Instructions: Prednisone daily 4 days Nebulizers 3 times daily as needed for cough Follow the primary care physician within the next 2 days Follow-up with the bag loader machine operator within the next 2 days Return immediately if symptoms worsen persist or if new concerning symptoms develop Prescriptions: RX: Albuterol 0.083% [Albuterol 0.083% Inhal Oly (2.5 mg/3 ml) UD] 1 vial IH TID PRN #1 packet PRN Reason: Cough RX: glyBURIDE [Micronase] 2.5 mg PO DAILY #15 tab RX: predniSONE [predniSONE Tab] 3 tab PO DAILY #12 tab Referrals: Ayan Lopez MD [Family Provider] - Follow up with primary Nanda Daniel MD [Medical Doctor] - Follow up with primary Demarco Cole MD [Staff Provider] - Follow up with primary [employer] [facility] [Outside] - Follow up with primary Forms: [employer] ([place])
[2018-03-31] MEDS: Albuterol-Ipratrop 3 mg / 0.5 (3 ml) UD IH SCH ×3 (11:20→12:04)
--- NOTE | 2018-03-31 11:34 | RAD ---
Date of service: 03/31/2018 HISTORY: cough/sob COMPARISON: 02/17/2018 FINDINGS: LUNGS: No active pulmonary disease. PLEURA: No significant pleural effusion identified, no pneumothorax apparent. CARDIOVASCULAR: No aortic atherosclerotic calcification present. Mild aortic tortuosity. The heart is top-normal in size no pulmonary vascular congestion. OSSEOUS STRUCTURES: No significant abnormalities. VISUALIZED UPPER ABDOMEN: Normal. OTHER FINDINGS: None. IMPRESSION: No active disease.
[2018-03-31 12:00] LABS: VENOUS BLOOD GAS BASE EXCESS 0.4 mmol/L (0.0-2.0); VENOUS BLOOD GAS PO2 41 mm/Hg (30-55)
[2018-03-31 12:02] LABS: BASO # 0.04 K/mm3 (0.0-2.0); BASO % 0.5 % (0.0-3.0); EOS # 0.9 (0.0-0.7); EOS % 11.6 % (1.5-5.0); GRAN # 5.19 (1.4-6.5); GRAN % 64.7 % (50.0-68.0); HEMOGLOBIN 13.4 g/dL (14.0-18.0); LYMPH # 1.5 (1.2-3.4); LYMPH % 18.3 % (22.0-35.0); MEAN CELL VOLUME 91.8 fl (80.0-105.0); MEAN CORPUSCULAR HEMOGLOBIN 31.4 pg (25.0-35.0); MEAN CORPUSCULAR HGB CONC 34.2 g/dl (31.0-37.0); MEAN PLATELET VOLUME 11.6 fl (7.0-11.0); MONO # 0.4 (0.1-0.6); MONO % 4.9 % (1.0-6.0); RBC 4.27 10^6/uL (3.5-6.1); RED CELL DISTRIBUTION WIDTH 13.3 % (11.5-14.5)
[2018-03-31 12:20] LABS: B-TYPE NATRIURETIC PEPTIDE 61.8 pg/mL (0-450); TROPONIN I < 0.01 ng/mL
[2018-03-31 12:21] LABS: ALB/GLOB RATIO 1.6 (1.1-1.8); ALBUMIN 4.1 g/dL (3.0-4.8); ALT/SGPT 29 U/L (7-56); AST/SGOT 20 U/L (17-59); BLOOD UREA NITROGEN 15 mg/dL (7-21); CALCIUM 9.2 mg/dL (8.4-10.5); GFR NON-AFRICAN AMERICAN > 60
[2018-03-31] MEDS ORDERED: Sodium Chloride 0.9% 500 ML IV STA (12:22)
[2018-03-31 12:47] VITALS: BP 125/72; PULSE 77; RESP 18; O2SAT 98
--- NOTE | 2018-03-31 20:39 | CARD ---
APPROVED REPORT Date of service: 03/31/2018 EKG Measurement Heart [id number] <Conclusion> Normal sinus rhythm Minimal voltage criteria for LVH, may be normal variant Borderline ECG
== END 2018-03-31 13:15 | disposition home or self-care (01) ==
LOC: ED 10:35
DX: J45.909 Unspecified asthma, uncomplicated (principal); I10 Essential (primary) hypertension; E11.9 Type 2 diabetes mellitus without complications; Z87.891 Personal history of nicotine dependence
CPT/HCPCS: 71045; 80053; 82550; 82803; 83615; 83880; 84484; 85025; 87040; 87804; 93005; 94640; 96374; 99283; J2930; J7040

== ENCOUNTER 2018-04-22 06:40 | Day surgery (SDC) | payer MEDICARE ==
[2018-04-22] MEDS ORDERED: Benzocaine/Butamben/Tetracai 14-2-2% TOP Spray TOP ONE (08:23)
[2018-04-22] MEDS ORDERED: Etomidate 20 mg/10ml Inj IV ONE (08:24)
[2018-04-22] MEDS ORDERED: Midazolam 2 MG/2 ML VIAL ONE (08:26)
[2018-04-22] MEDS ORDERED: Lidocaine 1% Inj (20ml) ONE (08:30)
[2018-04-22] MEDS ORDERED: Sodium Chloride 0.9% 1,000 ML IV SCH (09:00)
[2018-04-22 10:13] VITALS: TEMP 98
[2018-04-22 10:14] VITALS: BP 105/66; PULSE 58; RESP 16; O2SAT 96
== END 2018-04-22 10:03 | disposition home or self-care (01) ==
LOC: ENDO 06:40
PROVIDERS: ATTEND Internal Medicine Gastroenterology
DX: K21.0 Gastro-esophageal reflux disease with esophagitis (principal); R10.13 Epigastric pain; K25.9 Gastric ulcer, unspecified as acute or chronic, without hemorrhage or perforation; B37.81 Candidal esophagitis; K29.50 Unspecified chronic gastritis without bleeding; K29.80 Duodenitis without bleeding; I10 Essential (primary) hypertension; I38 Endocarditis, valve unspecified; E11.9 Type 2 diabetes mellitus without complications; F41.9 Anxiety disorder, unspecified; Z79.82 Long term (current) use of aspirin
CPT/HCPCS: 43239; 88305; 88342; J2250; J3010; J7030; J7040